=== PATIENT | male | born 1980 | race Hispanic/Latino ===

== ENCOUNTER 2023-12-28 14:00 | Emergency (ER) | payer OTHER ==
[~2023-12-28] VITALS: Ht 188 cm; Wt 117.9 kg
[2023-12-28 14:00] VITALS: BP 135/92; PULSE 100; RESP 16
== END 2023-12-28 14:37 | disposition left against medical advice (07) ==
LOC: EDH 14:00
DX: Z04.1 Encounter for examination and observation following transport accident (principal); Z53.21 Procedure and treatment not carried out due to patient leaving prior to being seen by health care provider
CPT/HCPCS: 99281